=== PATIENT | female | born 1950 | race Caucasian/White ===

== ENCOUNTER 2019-08-11 11:20 | Day surgery (SDC) | payer MEDICARE, SELFPAY ==
[2019-07-21 10:13] VITALS: BMI 24.3
[2019-08-11] VITALS (7 sets, daily range): BP systolic 113–131; BP diastolic 53–74; PULSE 57–74; RESP 16; TEMP 36.7–36.9; O2SAT 96–100; BMI 23.3
--- NOTE | 2019-08-11 11:20 | HP.PCM_ITS ---
History and Physical Date of Admission: 08/11/19 HISTORY OF PRESENT ILLNESS This is a 69-year-old woman presents with a lesion on her right lower medial cheek near inferior melolabial fold that had increased in size over the last several months and had developed irregular borders. The lesion was biopsied on 06/24/19, and it showed basal cell carcinoma, nodular type. She denies trauma. She denies fever. She denies drainage or bleeding. She had a basal cell carcinoma excised from her left central eyebrow extending onto the upper eyelid back in September 2013. She also had a basal cell carcinoma excised from her mid back in September 2014. PAST MEDICAL HISTORY Arthritis Cataract Frequent headaches Intradermal nevus Kidney stones Osteoporosis Skin cancer High blood pressure PAST SURGICAL HISTORY basal cell carcinoma excision excision of lesion ALLERGIES isosorbide [Isosorbide] MEDICATIONS Multivit-Min/FA/Lycopene/Lut [Centrum Silver Tablet] losartan prednisone FAMILY HISTORY Father - Heart disease Mother - Thyroid disorder SOCIAL HISTORY Smoking Status: Never smoker alcohol intake: never substance use type: does not use REVIEW OF SYSTEMS GENERAL: Denies fever, fatigue and weight loss. EYES: Denies eye pain. Denies cataracts. Denies glaucoma. ENT: Denies nasal congestion and sore throat. CARDIOVASCULAR: Denies chest pain, fatigue, lightheadedness, shortness of breath with exertion. RESPIRATORY: Denies cough and shortness of breath. GASTROINTESTINAL: Denies nausea, vomiting, diarrhea or constipation. GENITOURINARY: Denies hematuria and urinary frequency. MUSCULOSKELETAL: Denies joint pain, back pain, stiffness, muscle weakness or arthritis. INTEGUMENTARY: Had enlarging lesion right lower medial cheek near inferior melolabial fold that was biopsied on 06/24/19 and showed basal cell carcinoma, nodular type. Had basal cell carcinoma excised from left central eyebrow in September 2013. Had basal cell carcinoma excised from mid back in September 2014. NEUROLOGIC: Denies poor balance, headaches and weakness. PSYCHOLOGICAL: Denies anxiety and depression. ENDOCRINE: Denies excessive thirst or urination. HEMATOLOGIC: Denies abnormal bruising and fevers. PHYSICAL EXAMINATION HEENT: Pupils equal, round and reactive to light. Extraocular muscles intact. Throat is clear. On the left eyebrow is a well-healed scar with good contour and continuity noted within the eyebrow. On the right lower medial cheek near inferior melolabial fold is a 5 mm healing scar from recent biopsy showing basal cell carcinoma, nodular type. No ulceration. Lesion is nontender. NECK: Supple. Nontender. No cervical adenopathy. No suspicious lesions noted. LUNGS: Clear to auscultation. HEART: Regular rate and rhythm. ABDOMEN: Soft, nontender. EXTREMITIES: No clubbing, cyanosis or edema. No axillary adenopathy. No inguinal adenopathy. No suspicious lesions noted. NEUROLOGIC: Cranial nerves II-XII grossly intact. IMPRESSION 1. 5 mm basal cell carcinoma, nodular type, right lower medial cheek near inferior melolabial fold. 2. Personal history of skin cancer. PLAN Recommend excising the basal cell carcinoma right lower medial cheek near inferior melolabial fold with a 3-5 mm margin and send it to Pathology for analysis to rule out carcinoma at the margins. Reconstruction will be with a local transposition skin flap. Surgery can be done on an outpatient basis under local anesthesia and IV sedation. The patient was informed of the risks and complications of the procedure, including alternatives of surgery. These were discussed with her personally. She voiced understanding and wished to proceed. Some of the risks and complications were included in a form from the [employer].
[2019-08-11] MEDS: Lactated Ringers 1,000 ML 100 ML IV (12:06)
--- NOTE | 2019-08-11 13:00 | LES_PTH ---
PATIENT: ELLIE JENKINS LOC: [facility] [place] U#:[id number] AGE/SX: 69/F ROOM: RE08/11/[address]: Dr. Hakeem Flowers MD : 1950 BED: DIS: 08/11/2019 SPEC #: [id number] RECD: 08/11/19 16:00 STATUS: YOMI MARBELLA #: [id number] JACKIE: 08/11/19 13:[address]: Hakeem Flowers DEPT: SURGICAL PATHOLOGY RECD BY: Brad Estevez ENTERED: 08/12/19 08:06 SP TYPE: Lesion OTHR DR: Dr. Rajan Ovalles MD Tissues: Skin of face, NOS Procedures: Surgery Specimen Level IV HEADER OPERATION: Excision basal cell lower medial cheek by inferior melolabial fold PRE-OP DIAGNOSIS: 5 mm basal cell carcinoma, nodular type, right lower medial cheek near inferior melolabial fold TISSUE SUBMITTED: 5 mm basal cell carcinoma, nodular type, right lower medial cheek near inferior melolabial fold MICROSCOPIC DIAGNOSIS 5 mm basal cell carcinoma, right lower medial cheek near inferior melolabial fold, excisional biopsy: Basal cell carcinoma, nodular type (0.5 cm in greatest dimension) with focal calcifications, narrowly excised. See comment. SJ:rg 08/13/19 COMMENT The tumor is present <0.1 cm away from the closest 12 o'clock margin, in the planes of sections examined. Clinical correlation and appropriate follow up are necessary. Case has been reviewed in consultation with Dr. Zimmerman who concurs with the above diagnosis. IDC:AM MICROSCOPIC DESCRIPTION Slides are reviewed. GROSS DESCRIPTION Received in fixative is one container labeled with the patient's name and designated basal cell carcinoma, nodular type, right lower medial cheek near inferior melolabial fold, suture at 12 o'clock. The specimen consists of a round piece of liu-white skin measuring 0.6 x 0.6 cm and up to 0.3 cm in thickness. The specimen is oriented by a suture at 12 o'clock. The specimen is inked as follows: 12 o'clock margin - black, 6 o'clock margin - blue, 3 o'clock margin - green, 9 o'clock margin - yellow. The specimen is serially sectioned and submitted entirely in one cassette. / JAVIER:tosin 08/12/19 TC:0 CPT: 68518
[2019-08-11] MEDS: Mupirocin Ointment 22gm Tube 1 APPLIC (14:19)
--- NOTE | 2019-08-11 14:39 | PCM.OPRPT ---
Report of Operation Date of Procedure: 08/11/19 Pre-Operative Diagnosis: 1. 5 mm basal cell carcinoma, nodular type, right lower medial cheek near inferior melolabial fold. 2. Personal history of skin cancer. Post-Operative Diagnosis: Same. Surgery/Procedure Performed:: Excision 5 mm basal cell carcinoma, nodular type, right lower medial cheek near inferior melolabial fold with transposition skin flap reconstruction (2.4 cm2). Description of Surgical Findings:: This is a 69-year-old woman presents with a lesion on her right lower medial cheek near inferior melolabial fold that had increased in size over the last several months and had developed irregular borders. The lesion was biopsied on 06/24/19, and it showed basal cell carcinoma, nodular type. She denies trauma. She denies fever. She denies drainage or bleeding. She had a basal cell carcinoma excised from her left central eyebrow extending onto the upper eyelid back in September 2013. She also had a basal cell carcinoma excised from her mid back in September 2014. Patient was informed of the risks and complications of the procedure including alternatives to surgery. These were discussed with the patient personally. Patient voices understanding and wishes to proceed. Some of the risks and complications were included in a form from the [employer]. 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 Specimen's removed: Basal cell carcinoma, nodular type, right lower medial cheek near inferior melolabial fold to Pathology. Drains: None. Estimated Blood Loss (mL): 5 ml. Description of Procedure: Patient was taken to OR in supine position and was given IV sedation. The right face was prepped and draped in the usual fashion. SCD's were placed for DVT prophylaxis. Perioperative antibiotics were given intravenously. The basal cell carcinoma lesion right lower medial cheek near inferior melolabial fold was infiltrated with xylocaine and epinephrine. After waiting 5 minutes for the anesthetic to take effect, the lesion was excised with a 3 mm margin in all directions in a circular fashion down into the subcutaneous tissue. A suture was placed at 12 oclock position for pathology orientation. The lesion was sent to Pathology for analysis to rule out any residual carcinoma at the margins. I designed a transposition skin flap superiorly in the inferior melolabial crease. These markings were infiltrated. Incisions were made and the flap was elevated on a subcutaneous pedicle at the level of the facial musculature. Hemostasis was obtained with electrocautery. The skin flap was easily transposed into the defect with minimal tension and minimal distortion. Once the flap was transposed into the defect, it was closed in a layered fashion with 5-0 Monocryl interrupted sutures for the deep dermis and subcutaneous tissue. The skin was approximated with 6-0 Prolene simple interrupted sutures. Steri-strips were applied followed by antibiotic ointment. Good contouring was noted. The size of the defect and the size of the flap needed to close the defect was 2.4 cm2. Patient tolerated the procedure well and was sent to PACU in satisfactory condition. Patient will be sent home on antibiotics and pain medication. She will keep her head elevated during the initial postoperative period. Patient will followup in a week for a wound check and for discussion of the pathology report and for removal of the sutures. Grafts/Implants Used: None. - Complications None. - Admit VTE Documentation VTE Present on Admission: No VTE Mechan Device Prophylaxis: SCD's VTE Pharm Prophylaxis ordered?: No Code Visit Surgery Charges CPT - 73549 ICD-10 - C44.319, Z85.828
--- NOTE | 2019-08-11 14:46 | DCINST_ITS ---
You will use the following diet at home:: No restrictions Discharge Activity: May not drive while taking narcotic pain medications., May Shower - in two days., - - keep head elevated. no heavy lifting. May shower in (days): 2 May resume sexual activity in: No Restrictions Ice area for (Minutes): 5 - as needed for facial swelling. Weight Bearing Status: Weight bearing as tolerated Lifting Restrictions: 20 lbs. Keep extremity elevated above heart level: - - elevate head. Call your doctor if your incision/area has: Continuous Slow Oozing, Sudden Increased Bleeding, Increased Pain/ Swelling, Increased Redness, Foul Smelling Discharge, Swelling at the incision site Call your doctor if you observe: Fever of 101 or Higher, Coldness, Increased Pain, Shortness of breath, Chest pain, Calf discomfort, Uncontrolled pain Suture Line Care: - - apply antibiotic ointment to suture line daily. Cleanse incision/area with: - - may get incision wet in the shower in two days. Allergies/Adverse Reactions: Allergies isosorbide [Isosorbide] Adverse Reaction (Verified 08/11/19 11:48) Other SEVERE HEADACHE Medications to take at Discharge Multivit-Min/FA/Lycopene/Lut [Centrum Silver Tablet] 1 each PO DAILY 10/10/14 losartan 100 mg tablet 100 mg PO QHS 07/21/19 prednisone 5 mg tablet 5 mg PO DAILY 07/21/19 Clindamycin HCl [Cleocin] 300 mg PO TID #12 cap 08/11/19 Lactobacillus Acidophilus/Fos [Acidophilus Probiotic Tablet] 1 ea PO BID #10 tab 08/11/19 Oxycodone HCl/Acetaminophen [Percocet 5/325] 1 tab PO TID PRN PRN 5 Days #15 tab 08/11/19 The following prescriptions were given: Lactobacillus Acidophilus/Fos [Acidophilus Probiotic Tablet] 1 ea PO BID #10 tab Prescription Printed Clindamycin HCl [Cleocin] 300 mg PO TID #12 cap Prescription Printed Oxycodone HCl/Acetaminophen [Percocet 5/325] 1 tab PO TID PRN PRN 5 Days #15 tab PRN Reason: Pain Prescription Printed Primary Care Physician: Rajan Ovalles MD [Primary Care Provider] - Test Results: Test results from this visit will be discussed in further detail at your follow- up appointment, if applicable. Please Follow Up With: Hakeem Flowers MD When: one week. call [phone] for appt. Proposed Discharge Date: 08/11/19
== END 2019-08-11 16:57 | disposition home or self-care (01) ==
LOC: SDC 11:20 → AC 11:24
PROVIDERS: Family Provider Family Medicine; PCP Family Medicine; Referring Provider Surgery; Visit Provider Surgery
PROC: (CPT 14040; principal; 2019-08-11 12:50)
DX: C44.319 Basal cell carcinoma of skin of other parts of face (principal); Z85.828 Personal history of other malignant neoplasm of skin; I10 Essential (primary) hypertension; M19.90 Unspecified osteoarthritis, unspecified site; M81.0 Age-related osteoporosis without current pathological fracture; Z87.442 Personal history of urinary calculi; Z78.0 Asymptomatic menopausal state; Z79.899 Other long term (current) drug therapy
CPT/HCPCS: 00300; 14040; 88305; J7120

== ENCOUNTER → 2019-11-10 11:56 | Outpatient (CLI) | payer MEDICARE, SELFPAY ==
[2019-08-18 09:34] VITALS: BMI 23.3
--- NOTE | 2019-11-10 12:04 | US_ITS ---
STUDY: Ultrasound thyroid REASON FOR EXAM: Female, 69 years old. AREA OF PALP LUMP(S) RT NECK TECHNIQUE: Ultrasound evaluation of the thyroid was performed with real-time and static zuniga-scale imaging. COMPARISON: None. FINDINGS: RIGHT LOBE: The right lobe of the thyroid gland measures 4.9 x 1.8 x 1.4 cm. There is a homogeneous echotexture. There is a solid homogeneous hypoechoic nodule of the right thyroid lobe measuring 2.3 x 1.7 x 1.2 cm. There is an additional complex cyst of the right thyroid lobe measuring 0.6 x 0.5 x 0.3 cm. LEFT LOBE: The left lobe of the thyroid gland measures 4.0 x 1.6 x 1.0 cm. There is a homogeneous echotexture. There are no demonstrated solid, cystic or complex lesions. ISTHMUS: The isthmus measures 2 mm . There is a right cervical node demonstrate normal echogenicity measuring 1.6 x 0.9 x 0.5 cm. The right parotid gland measures 3.8 x 3.9 x 1.1 cm. US/Head/Neck Soft Tissue IMPRESSION: Homogeneous hypoechoic nodule of the right thyroid lobe measuring 2.3 x 1.7 x 1.2 cm. Fine-needle biopsy of this nodule is recommended. There is an additional complex cyst of the right thyroid lobe measuring 0.6 x 0.5 x 0.3 cm. There is a right cervical lymph node demonstrate normal echotexture measuring 1.6 x 0.9 x 0.5 cm. Electronically Signed: Rupert Mosquera MD at 20:24 EST , Service support ,
== END ==
PROVIDERS: Family Provider Family Medicine; PCP Family Medicine; Referring Provider Family Medicine; Visit Provider Family Medicine
DX: R22.1 Localized swelling, mass and lump, neck (principal)
CPT/HCPCS: 76536

== ENCOUNTER → 2019-11-17 14:24 | Outpatient (CLI) | payer MEDICARE, SELFPAY ==
[2019-08-18 09:34] VITALS: BMI 23.3
--- NOTE | 2019-11-17 | ASPIG_PTH ---
PATIENT: ELLIE JENKINS LOC: [facility]#:[id number] AGE/SX: 75/F ROOM: RE11/17/[address]: Dr. Rajan Ovalles MD : 1950 BED: DIS: SPEC #: [id number] RECD: 11/17/19 15:26 STATUS: YOMI RIBERALatanya #: [id number] JACKIE: 11/17/19 00:[address]: Rajan Ovalles DEPT: CYTOLOGY RECD BY: Gracie Tejeda Tissues: Thyroid gland, NOS Procedures: FNA Specimen Adequacy Special Stain Group II Surgery Specimen Level IV Cytology Other HEADER OPERATION: Right thyroid FNA PRE-OP DIAGNOSIS: Right thyroid nodule TISSUE SUBMITTED: Right thyroid nodule, ultrasound-guided FNA DIAGNOSIS CYTOLOGY Right thyroid nodule, ultrasound-guided FNA (cell block, cytospin and smears): Atypical follicular cells noted, highly suspicious for papillary thyroid carcinoma. Adequate for evaluation. See comment. JAVIER:tosin 11/18/19 COMMENT The specimen is evaluated at the time of FNA by Dr. He. Immediate Evaluation: Set 1, two passes - Blood only. Follicular cells are not seen. Set 2, one pass - Rare follicular cells are noted. Correlation with clinical, radiologic findings and appropriate follow up are necessary. Case has been reviewed in consultation with Dr. Zimmerman who concurs with the above diagnosis. IDC:AM CYTOLOGY STUDY Slides are reviewed. CYTOLOGY GROSS Set 1, two passes - Received is 0.5 ml of bloody fluid labeled with the patient's name, and designated right thyroid nodule. Seven imprints and six paps are made from the submitted fluid and the rest is added to CytoLyt for cell block preparation. Submitted for cytology study. Set 2, one pass - Received is 0.1 ml of bloody fluid labeled with the patient's name, and designated right thyroid nodule. Three imprints and three paps are made from the submitted fluid and the rest is added to CytoLyt for cell block preparation. Submitted for cytology study. / SJ:tosin 11/17/19 TC:5 CPT: 85054, 33251, 38569, 32905, 67250
--- NOTE | 2019-11-17 14:28 | US_ITS ---
PROCEDURE: ULTRASOUND GUIDED RIGHT THYROID FNA/BIOPSY. DATE: November 17, 2019. INDICATION: Female, 69 years old. Right thyroid nodule. PHYSICIAN: Yrn Olivera M.D. MEDICATIONS: 2% lidocaine administered subcutaneously for local anesthesia. ACCESS SITE: Right - anterior approach. NEEDLE: 25-gauge FNA needle. SPECIMEN: Multiple FNA specimen collected and given to pathology. EBL: None. COMPLICATIONS: None immediate. PROCEDURE: The risks, benefits, and alternatives to the procedure were explained to the patient. The specific risk of hemorrhage requiring further treatment or intervention was detailed and accepted. Written informed consent was obtained. The patient was brought into the ultrasound room and placed in the supine position on the stretcher. An appropriate entry site was identified. The overlying skin was prepped and draped in the usual sterile fashion. 2% lidocaine was administered subcutaneously for local anesthesia. Under ultrasound guidance, a 25-gauge FNA needle was advanced into the lesion. Aspiration was performed and the needle was withdrawn. A total of 4 passes were performed with specimen collected and given to the pathologist who was present during the procedure. Hemostasis was achieved with manual compression. Repeat ultrasound images of the biopsy area was performed which demonstrated no gross bleeding or hematoma. An antibiotic ointment dressing was placed and the patient was given an icepack. The patient tolerated the procedure well without immediate complications. The patient was discharged in stable condition. US/FNA 1st Biopsy w/ US IMPRESSION: Successful ultrasound-guided right thyroid nodule FNA/biopsy, as described above. Electronically Signed: Yrn Olivera, at 15:30 EST , Service support ,
== END ==
PROVIDERS: PCP Family Medicine; Referring Provider Family Medicine; Visit Provider Family Medicine
DX: R22.1 Localized swelling, mass and lump, neck (principal)
CPT/HCPCS: 10005; 88161; 88172; 88305; 88313

== ENCOUNTER → 2024-12-07 | Outpatient (CLI) | payer MEDICARE, SELFPAY ==
[2024-12-07 15:25] LABS: Absolute Lymphocyte Count 3.07 X10^3/uL (0.83-4.51); Absolute Neutrophil Count 3.5 X10^3/uL (2.0-7.7); Basophil# 0.06 X10^3/uL; Basophil% 0.8 % (0-1); Eosinophil# 0.08 X10^3/uL; Eosinophils% 1.1 % (0-5); Hematocrit 40.6 % (37-47); Hemoglobin 12.7 g/dL (12.0-15.0); Lymphocyte # 3.07 X10^3/ul (0.83-4.51); Lymphocyte % 42.8 % (19-41); Mean Corp Hgb Conc 31.3 g/dL (32-36); Mean Corpuscular Hgb 29.8 pg (27.0-32.0); Mean Corpuscular Volume 95.3 fL (81-99); Mean Platelet Vol. 12.3 fl (6.2-12.0); Monocyte# 0.46 X10^3/uL; Monocyte% 6.4 % (0-10); NRBC Flagged by Analyzer 0 % (0-5); Neutrophil % 48.8 % (47-70); Platelet Count 197 K/mm3 (150-450); RBC Distribution Width CV 12.7 % (11.6-14.6); Red Blood Count 4.26 M/mm3 (4.2-5.4); White Blood Count 7.2 K/mm3 (4.4-11.0)
[2024-12-07 15:46] LABS: Erythrocyte Sedimentation Rate 16 mm/hr (0-30)
[2024-12-07 19:00] LABS: ALB/GLOB Ratio 0.9 RATIO (0.9-2.4); AST(SGOT) 43 U/L (15-37); Alanine Aminotransfer ALT/SGPT 59 U/L (13-56); Albumin, Serum 3.8 g/dL (3.2-5.0); Alkaline Phosphatase 101 U/L (45-117); Anion Gap 6 (5-15); BUN 23 mg/dL (7-18); BUN/Creat Ratio 25.6 RATIO (10-20); CRP < 2.90 mg/L (0.0-3.0); Calcium,Total 9.8 mg/dL (8.5-10.1); Chloride 106 mmol/L (98-107); Cholesterol 160 mg/dL (200); EST Glomerular Filtration Rate 65 mL/min (>60); Est Glom Filt Rate - Afr Amer 79 mL/min (>60); Globulin 4.1 g/dL (2.2-4.2); Glucose 84 mg/dL (74-106); High Density Lipoprotein 74 mg/dL; Potassium 4.9 mmol/L (3.5-5.1); Protein, Total 7.9 g/dL (6.4-8.2); Sodium Level 140 mmol/L (136-145); Triglycerides 93 mg/dL; Very Low Density Lipoprotein 19 mg/dL (5-40)
== END | disposition home or self-care (01) ==
LOC: BIMLAB 14:17
PROVIDERS: PCP Internal Medicine; Visit Provider Internal Medicine
DX: E89.0 Postprocedural hypothyroidism (principal); R68.84 Jaw pain; M81.0 Age-related osteoporosis without current pathological fracture
CPT/HCPCS: 36415; 80053; 80061; 82306; 84443; 85025; 85652; 86140

== ENCOUNTER → 2025-03-09 | Outpatient (CLI) | payer MEDICARE, SELFPAY ==
--- NOTE | 2025-03-09 07:53 | CT_ITS ---
PROCEDURE: SOFT TISSUE NECK W/WO CONTRAST 03/09/2025 REASON FOR EXAM: JAW PAIN/FACIAL SWELLING - ASSESS GLANDS TECHNIQUE: CT of the soft tissues of the neck from the orbits to the upper mediastinum with and without intravenous contrast. CONTRAST: Isovue 3 7 VOLUME: 75 mL One or more dose reduction techniques were used (e.g., Automated exposure control, adjustment of the mA and/or kV according to patient size, use of iterative reconstruction technique). RADIATION DOSE SUMMARY: CTDlvol: 9.45 mGy DLP: 427.49 mGycm COMPARISON: None FINDINGS: Airway: Midline and patent. Salivary glands: Unremarkable. Lymph nodes: Mild reactive enlargement of multiple cervical lymph nodes. Thyroid: The patient is status post resection of the right lobe of the thyroid. Vasculature: Mild calcified plaque of the carotid arteries. Orbits: Unremarkable at visualized levels. Paranasal sinuses and mastoids: Grossly clear at visualized levels. Lung apices: Mild emphysematous changes. Upper mediastinum: Visualized mediastinum is unremarkable. Bones: Multilevel degenerative changes of the spine. Other: CT/Soft Tissue Neck W/WO Contrast IMPRESSION: NO ACUTE FINDINGS. Reading Location: [id number]
== END | disposition home or self-care (01) ==
PROVIDERS: PCP Internal Medicine; Referring Provider Internal Medicine; Visit Provider Internal Medicine
DX: R22.0 Localized swelling, mass and lump, head (principal); R68.84 Jaw pain
CPT/HCPCS: 70492; Q9967